=== PATIENT | male | born 1980 | race Caucasian/White ===

== ENCOUNTER 2020-05-18 10:41 | Emergency (ER) | payer SELFPAY ==
[~2020-05-18] VITALS: Ht 175.3 cm; Wt 80.9 kg
[2020-05-18] MEDS ORDERED: OXYMETAZOLINE NASAL SPRAY 0.05%, 15ML NAS ONE (11:00)
[2020-05-18] MEDS ORDERED: OXYMETAZOLINE NASAL SPRAY 0.05%,30ML ONE (11:01)
--- NOTE | 2020-05-18 11:17 | NUR ---
DR. BRUCE AT BEDSIDE.
[2020-05-18] MEDS ORDERED: LIDOCAINE 2%,20 ML JEL.PF.APP MM ONE (11:34)
[2020-05-18] MEDS ORDERED: L.E.T SOLUTION TP ONE (11:35)
[2020-05-18 11:40] LABS: INTERNATIONAL NORMALIZED RATIO 1.3 (0.93-1.1); PROTHROMBIN TIME 13.4 Seconds (9.6-11.5)
[2020-05-18] MEDS ORDERED: SILVER NITRATE STICK TP ONE ×2 (11:40→12:00)
--- NOTE | 2020-05-18 11:55 | NUR ---
PER [facility] NEEDS A CBC REDRAW DUE TO CLOT ON SMEAR.
[2020-05-18] MEDS ORDERED: LIDOCAINE GEL 2%, 5ML TP ONE (12:00)
[2020-05-18 12:15] VITALS: BP 143/75
== END 2020-05-18 12:31 | disposition home or self-care (01) ==
LOC: ED 11:24
DX: R04.0 Epistaxis (principal); D68.4 Acquired coagulation factor deficiency
CPT/HCPCS: 30901; 36415; 85610; 99284